=== PATIENT | male | born 1980 | race Caucasian/White ===

== ENCOUNTER 2017-02-20 12:45 | Emergency (ER) | payer MEDICAID, OTHER ==
[2017-02-20 12:52] VITALS: BP 141/113; PULSE 95; RESP 18; TEMP 99.5; O2SAT 98
--- NOTE | 2017-02-20 13:01 | EDPHY ---
H & P Time Seen by Provider: 02/20/17 13:00 HPI/ROS: CHIEF COMPLAINT: Possible drug interaction HISTORY OF PRESENT ILLNESS: This patient is a 36 year old male with history of IV drug abuse presenting with multiple concerns related to possible drug use. He is worried that a substance he injected approximately 12 hours ago may have contained methamphetamines or other unknown substances. He is currently taking medications for hypertension and hyperlipidemia as well as benzodiazepines for anxiety. He would like to have various tests done because he feels the interactions between these medications may be causing a "bad experience" including skin rash and increased hypertension. He is unable to clarify whether he has been compliant with his medications. 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 HPI difficult to obtain due to scattered thought. The patient seems unable to identify any single complaint and appears quite anxious. He denies SI/HI. REVIEW OF SYSTEMS: A 10 point review of systems was performed and is negative with the exception of the elements mentioned in the history of present illness. Past Medical/Surgical History: 1. IV drug abuse 2. Hypertension Social History: Single. Lives in [place]. Current polysubstance use. Smoking Status: Never smoked Physical Exam: General Appearance: Alert, appears anxious, agitated. Eyes: Pupils equal and round, no conjunctival pallor or injection ENT, Mouth: Mucous membranes moist Neck: Normal inspection Respiratory: Lungs are clear to auscultation Cardiovascular: Regular rate and rhythm Gastrointestinal: Abdomen is soft and non-tender Neurological: A&O, nonfocal, normal gait Skin: Warm and dry, no rash Extremities: Nontender, no pedal edema Psychiatric: Tangential thought, pressured speech Constitutional: Initial Vital Signs Temperature (C) 37.5 C 02/20/17 12:48 Heart Rate 95 02/20/17 12:48 Respiratory Rate 18 02/20/17 12:48 Blood Pressure 141/113 H 02/20/17 12:48 O2 Sat (%) 98 02/20/17 12:48 O2 Delivery Mode Room Air Allergies/Adverse Reactions: No Known Allergies Allergy (Verified 02/20/17 12:47) Home Medications: Medication Instructions Recorded NK [No Known Home Meds] 04/23/15 Medical Decision Making ED Course/Re-evaluation: 36 year old male presents with multiple complaints. He has tangential thought and pressured speech throughout my interview, and appeared agitated by the end. He has requested a dose of benzodiazepines to take him out of "manic state". He requests an STD test and tox screen. Ativan 1 mg orally given. I reviewed his past medical records. He has been seen in this emergency department 3 times in the past, all of which were for polysubstance abuse. He does not meet criteria for mental health hold. 1:40 p.m.-the patient left the emergency department prior to his full evaluation. He declined oral Ativan, stating that he had benzodiazepines at home. Differential Diagnosis: Differential diagnosis includes though not limited to acute psychosis, bipolar disorder, infection, hypoglycemia - Data Points Laboratory Results: 02/20/17 13:20 Urine Opiates Screen NEGATIVE (NEGATIVE) Urine Barbiturates NEGATIVE (NEGATIVE) Ur Phencyclidine Scrn NEGATIVE (NEGATIVE) Ur Amphetamine Screen NON-NEGATIVE H (NEGATIVE) U Benzodiazepines Scrn NEGATIVE (NEGATIVE) Urine Cocaine Screen NON-NEGATIVE H (NEGATIVE) U Marijuana (THC) Screen NON-NEGATIVE H (NEGATIVE) Medications Given: Discontinued Medications Lorazepam (Ativan) 1 mg PO EDNOW ONE Stop: 02/20/17 13:17 Last Admin: 02/20/17 13:46 Dose: Not Given Departure - Departure Disposition: Against Medical Advice Clinical Impression: Polysubstance abuse Condition: Fair Instructions: Polysubstance Abuse (ED) [facility]Other[facility] - As per Instructions Report Scribed for: Danielle Leblanc Report Scribed by: Fidelia Williamson Date of Report: 02/20/17 Time of Report: 13:09 Physician Review and Approval Statement: 02/20/17 13:01 Portions of this note were transcribed by a medical radiation therapist. I personally performed a history, physical exam, medical decision making, and confirmed accuracy of information the transcribed note.
[2017-02-20] MEDS ORDERED: LORazepam 1 MG TAB PO ONE (13:16)
== END 2017-02-20 13:55 | disposition left against medical advice (07) ==
DX: F19.10 Other psychoactive substance abuse, uncomplicated (principal); I10 Essential (primary) hypertension
CPT/HCPCS: 80305